=== PATIENT | male | born 1985 | race Caucasian/White ===

== ENCOUNTER 2021-06-03 05:17 | Emergency (ER) | payer OTHER ==
[2021-06-03] MEDS ORDERED: DELSYM30 MG/5 ML PO (07:43)
[2021-06-03] MEDS ORDERED: MEDROL DOSEPAK 24 MG PO (07:43)
[2021-06-03] MEDS ORDERED: ZYRTEC10 MG PO (07:43)
[2021-06-03] MEDS ORDERED: FLONASE 0.05% N16 GM (07:43)
== END 2021-06-03 07:50 | disposition home or self-care (01) ==
LOC: ER1 05:17
DX: R05.9 Cough, unspecified (principal); Z20.822 Contact with and (suspected) exposure to COVID-19; F17.210 Nicotine dependence, cigarettes, uncomplicated
CPT/HCPCS: 0240U; 87081; 87880; 99283

== ENCOUNTER 2021-10-07 20:09 | Emergency (ER) | payer OTHER ==
[~2021-10-07 20:09] MED LIST: DELSYM30 MG/5 ML PO; FLONASE 0.05% N16 GM; MEDROL DOSEPAK 24 MG PO; ZYRTEC10 MG PO
[2021-10-07 20:38] LABS: HEMOGLOBIN 15.3 gm/dl (14.0-17.5); RED BLOOD COUNT 4.8 M/UL (4.20-5.50); WHITE BLOOD COUNT 10.6 K/UL (4.5-11.0)
[2021-10-07 21:05] LABS: BUN/CREATININE RATIO 17 (0-10)
[2021-10-08] MEDS ORDERED: FLOMAX0.4 MG PO (00:18)
[2021-10-08] MEDS ORDERED: ONDANSETRON ODT4 MG SL (00:18)
[2021-10-08] MEDS ORDERED: TORADOL 10 MG T10 MG PO (00:18)
[2021-10-08] MEDS ORDERED: HYDROCODON-ACE1 EAC4 PO (00:20)
== END 2021-10-08 00:34 | disposition home or self-care (01) ==
LOC: ER1 20:09
PROVIDERS: Emergency Medicine
DX: N13.2 Hydronephrosis with renal and ureteral calculous obstruction (principal); F17.200 Nicotine dependence, unspecified, uncomplicated
CPT/HCPCS: 80053; 81001; 83690; 85025; 96372; 99284; J1885

== ENCOUNTER 2021-10-11 12:27 | Emergency (ER) | payer OTHER ==
[~2021-10-11 12:27] MED LIST changes: +FLOMAX0.4 MG PO; +HYDROCODON-ACE1 EAC4 PO; +ONDANSETRON ODT4 MG SL; +TORADOL 10 MG T10 MG PO
[2021-10-11 13:29] LABS: HEMOGLOBIN 15.7 gm/dl (14.0-17.5); RED BLOOD COUNT 4.97 M/UL (4.20-5.50); WHITE BLOOD COUNT 6.6 K/UL (4.5-11.0)
[2021-10-11 13:47] LABS: BUN/CREATININE RATIO 18 (0-10)
[2021-10-11] MEDS ORDERED: AMOXICILLIN500 MG PO (15:17)
== END 2021-10-11 16:21 | disposition home or self-care (01) ==
LOC: ER1 12:27
PROVIDERS: Physician Assistant
DX: J02.0 Streptococcal pharyngitis (principal); F17.210 Nicotine dependence, cigarettes, uncomplicated; Z87.442 Personal history of urinary calculi; Z90.89 Acquired absence of other organs; Z20.822 Contact with and (suspected) exposure to COVID-19
CPT/HCPCS: 0240U; 71045; 80048; 85025; 87081; 87880; 96374; 99283; J1885